=== PATIENT | female | born 2000 | race Caucasian/White ===

== ENCOUNTER 2020-06-03 14:14 | Emergency (ER) | payer BC, SELFPAY ==
[2020-06-03 14:58] VITALS: BP 131/73; PULSE 85; RESP 18; TEMP 36.8; O2SAT 98; BMI 26.8
--- NOTE | 2020-06-03 15:14 | HMH.EDUTC ---
"[facility] [place] Impression: Ringworm Disposition: Home, Self-Care Condition on Discharge: Good Instructions: Ringworm, DI for Ringworm Additional Instructions: Use the medication as instructed. Follow up with your primary care doctor if this has not started to look better within a week. It may take a couple weeks for it to go completely away, but it should start to improve slowly once you start putting the medication on it. GO TO THE ER FOR ANY WORSENING SYMPTOMS OR CONCERNS Prescriptions: Clotrimazole/Betamethasone Dip [Lotrisone cream 15gm tube] 1 applicatio TP BID 14 Days #1 tube Transmission Status: Received by Traveler | [id number] Referrals: PCP,No [Primary Care Provider] - Time of Disposition: 15:20 Medical Decision Making - Medical Records Medical records reviewed: No: I reviewed the patient's medical records. - Leroy Inquiry Pt receiving controlled substance: No Vital Signs: 06/03/20 14:58 06/03/20 15:28 Temperature 98.2 F 98.2 F Temperature Source Oral Pulse Rate 85 Pulse Rate [Right Brachial] 85 Respiratory Rate 18 18 Blood Pressure 131/73 Blood Pressure [Right Arm] 131/73 Blood Pressure Mean [Right Arm] 92 Blood Pressure Source [Right Arm] Automatic Cuff Blood Pressure Position [Right Arm] Sitting 02 Sat by Pulse Oximetry 98 Oxygen Delivery Method Room Air [facility] [place] - General Stated complaint: right arm rash Time Seen by Provider: 06/03/20 15:14 Mode of Arrival: Ambulatory Source of Information: Patient Limitations: No Limitations Description of Symptoms (Recalled from Triage Doc. by RN): PATIENT C/O ITCHY, RED, CIRCULAR RASH TO RIGHT WRIST X 1 WEEK HEENT Symptoms (Recalled from RN notes): No Resp Symptoms (Recalled from RN notes): No Skin Symptoms (Recalled from RN notes): Yes MS Symptoms (Recalled from RN notes): No Functional Status (Recalled from RN notes): WNL - History of Present Illness Provider Complaint: She states that for the past 2 weeks, she has a circular lesion on her right wrist. She states that the skin lesion has been slowly getting larger. She denies that she has any history of a jewelry allergy or any history of wearing a watch on that wrist. - Related Data Previous Rx's Medication Instructions Recorded Clotrimazole/Betamethasone Dip 1 applicatio TP BID 14 Days #1 tube 08/24/20 [Lotrisone cream 15gm tube] Allergies Allergy/AdvReac Type Severity Reaction Status Date / Time No Known Allergies Allergy Unverified 12/19/18 15:55 - Worker's Comp Is this a Worker's Comp case?: No [facility] History - Hepatitis A Screen Drug use history?: No High risk sexual behaviors?: No History of sexually transmitted infection?: No Currently employed?: No Childcare worker?: No Do you have indoor plumbing?: Yes Do you have electricity?: Yes Attestation statement:: This patient has been screened for Hepatitis A risk factors. I have reviewed the patient's past medical history: Yes Medical History: Reports:: Asthma Other Surgeries: Yes: No Previous Surgery Amputation: No Fractures: No - Social History Smoking Status: Never smoker Alcohol Intake: never Occupational Status: other Housing: house Household Members: family Family Hx:: Diabetes, Hypertension, Stroke ROS Obtained: Yes All systems reviewed & no additional complaints - Constitutional Constitutional: Denies chills, Denies fever(s) - Musculoskeletal Musculoskeletal: Denies joint pain - Integumentary/Breasts Skin/Breast: Reports as per HPI - Neurologic Neurologic: Denies tingling/numbness/burning sensations Physical Exam - General General appearance: alert, in no apparent distress - Head Head exam: atraumatic, normocephalic, normal inspection - Eye Eye exam: Present: normal appearance, PERRL, EOMI - ENT ENT exam: Present: normal exam, normal oropharynx, mucous membranes moist, TM's normal bilaterally, normal external ear exam - Neck Neck ex"
[2020-06-03 15:28] VITALS: BP 131/73; PULSE 85; RESP 18; TEMP 36.8; O2SAT 98
== END 2020-06-03 15:29 | disposition home or self-care (01) ==
PROVIDERS: Emergency Provider Nurse Practitioner Family
DX: B35.9 Dermatophytosis, unspecified (principal); J45.909 Unspecified asthma, uncomplicated
CPT/HCPCS: 99201